=== PATIENT | male | born 1935 | race Caucasian/White ===

== ENCOUNTER 2023-08-25 09:23 | Outpatient (RCR) | payer OTHER, SELFPAY | END 2023-08-25 23:59 | disposition home or self-care (01) | LOC: ROT 09:23 | PROVIDERS: ATTENDING PHYSICIAN Internal Medicine Geriatric Medicine | DX: I69.311 Memory deficit following cerebral infarction (principal); I69.320 Aphasia following cerebral infarction; R41.3 Other amnesia; Z73.6 Limitation of activities due to disability | CPT/HCPCS: 96125; 97110; 97129; 97130; 97167; 97530; 97535 ==

== ENCOUNTER 2023-09-28 12:06 | Outpatient (RCR) | payer OTHER, SELFPAY | END 2023-09-28 23:59 | disposition home or self-care (01) | LOC: RPT 12:06 | PROVIDERS: ATTENDING PHYSICIAN Internal Medicine Geriatric Medicine | DX: I69.328 Other speech and language deficits following cerebral infarction; R41.3 Other amnesia; Z73.6 Limitation of activities due to disability; I69.318 Other symptoms and signs involving cognitive functions following cerebral infarction; I69.310 Attention and concentration deficit following cerebral infarction; I69.398 Other sequelae of cerebral infarction; R26.9 Unspecified abnormalities of gait and mobility; R26.89 Other abnormalities of gait and mobility; R53.1 Weakness | CPT/HCPCS: 97110; 97112; 97129; 97130; 97162; 97530; 97535 ==

== ENCOUNTER 2023-10-16 08:46 | Outpatient (RCR) | payer OTHER, SELFPAY | END 2023-10-16 23:59 | disposition home or self-care (01) | LOC: RPT 08:46 | PROVIDERS: ATTENDING PHYSICIAN Internal Medicine Geriatric Medicine | DX: I69.311 Memory deficit following cerebral infarction (principal); I69.310 Attention and concentration deficit following cerebral infarction (principal); I69.328 Other speech and language deficits following cerebral infarction; I69.320 Aphasia following cerebral infarction; R41.3 Other amnesia; I69.318 Other symptoms and signs involving cognitive functions following cerebral infarction; Z73.6 Limitation of activities due to disability; I69.398 Other sequelae of cerebral infarction; R26.89 Other abnormalities of gait and mobility; R53.1 Weakness | CPT/HCPCS: 97110; 97112; 97129; 97130; 97530; 97535 ==

== ENCOUNTER → 2024-01-12 12:36 | Outpatient (REF) | payer OTHER, SELFPAY | LOC: REG 12:36 | PROVIDERS: ATTENDING PHYSICIAN Nurse Practitioner Primary Care; OTHER PHYSICIAN Internal Medicine Rheumatology | DX: M25.561 Pain in right knee (principal); S89.91XA Unspecified injury of right lower leg, initial encounter | CPT/HCPCS: 73564 ==

== ENCOUNTER → 2024-02-17 09:08 | Outpatient (REF) | payer OTHER, SELFPAY | LOC: PAVMRI 09:08 | PROVIDERS: ATTENDING PHYSICIAN Nurse Practitioner Primary Care | DX: M25.561 Pain in right knee (principal); S89.91XA Unspecified injury of right lower leg, initial encounter; M25.461 Effusion, right knee | CPT/HCPCS: 73721 ==

== ENCOUNTER → 2024-03-09 10:17 | Outpatient (REF) | payer OTHER, SELFPAY ==
[2024-03-09 11:59] LABS: Urine Albumin Negative (Neg - Trace); Urine Bilirubin Negative (Negative); Urine Character Clear (Clear); Urine Color Yellow; Urine Glucose Negative (Negative); Urine Ketone Negative (Negative); Urine Leukocyte Negative (Negative); Urine Nitrite Negative (Negative); Urine Occult Blood Negative (Negative); Urine Urobilinogen Negative (Neg - 1+)
[2024-03-09 12:31] LABS: ALT (SGPT) 22 U/L (0-50); AST (SGOT) 26 U/L (17-59); Alkaline Phosphatase 116 U/L (38-126); Blood Urea Nitrogen 17 mg/dl (9-20); Calcium 8.7 mg/dl (8.4-10.2); Carbon Dioxide 31 mmol/L (22-30); Chloride 103 mmol/L (98-107); Glucose 91 mg/dl (70-99); HDL Cholesterol 78 mg/dl; LDL Cholesterol, Calculated 76 mg/dl; Potassium 4.3 mmol/L (3.5-5.1); Sodium 139 mmol/L (135-145); Total Bilirubin 1.1 mg/dl (0.2-1.3); Total Cholesterol 163 mg/dl (50-199); Total Protein 6.4 g/dl (6.3-8.2); Triglyceride 47 mg/dl (10-149); Very Low Density Lipoprotein 9 mg/dl (0-30); eGFR > 60.00
[2024-03-09 12:40] LABS: Vitamin D, 25-OH*** 15.1 ng/mL (30-80)
[2024-03-09 12:41] LABS: % Basophils 0.5 % (0-2); % Eosinophils 2.2 % (0-6); % Immature Granulocytes 0.2 % (0-0.5); % Lymphocytes 27.4 % (20.5-51.1); % Monocytes 7.4 % (1.7-9.3); % Neutrophils 62.3 % (42.2-75.2); Absolute Eosinophils 0.1 10^3/uL (0-0.7); Absolute Lymphocytes 1.7 10^3/uL (1.2-3.4); Absolute Monocytes 0.5 10^3/uL (0.1-0.6); Hematocrit 44.6 % (39.0-52.0); Hemoglobin 14.3 g/dL (13.0-18.0); Mean Corp Hgb Conc. 32.1 g/dL (33.0-37.0); Mean Corpuscular Hgb 31.4 pg (27.0-31.0); Nucleated Red Blood Cells % 0 % (-); Red Blood Cell Count 4.55 10^6/uL (4.70-6.10); Red Cell Dist. Width 13.6 % (11.5-14.5); White Blood Cell Count 6.3 10^3/uL (4.8-10.8)
[2024-03-09 12:54] LABS: PSA, Total - Screen 1.38 ng/ml (0.0-4.0)
== END ==
LOC: OLABPV 10:17
PROVIDERS: ATTENDING PHYSICIAN Internal Medicine Geriatric Medicine
DX: I10 Essential (primary) hypertension (principal); E78.00 Pure hypercholesterolemia, unspecified; I48.0 Paroxysmal atrial fibrillation; Z86.73 Personal history of transient ischemic attack (TIA), and cerebral infarction without residual deficits; N40.1 Benign prostatic hyperplasia with lower urinary tract symptoms; Z13.89 Encounter for screening for other disorder; Z12.5 Encounter for screening for malignant neoplasm of prostate
CPT/HCPCS: 36415; 80053; 80061; 81003; 82306; 85025; G0103

== ENCOUNTER → 2024-05-03 10:53 | Outpatient (REF) | payer OTHER, SELFPAY ==
[2024-05-03 11:53] LABS: % Basophils 0.6 % (0-2); % Eosinophils 1.4 % (0-6); % Immature Granulocytes 0.3 % (0-0.5); % Lymphocytes 26.4 % (20.5-51.1); % Neutrophils 64.3 % (42.2-75.2); Absolute Eosinophils 0.1 10^3/uL (0-0.7); Absolute Lymphocytes 1.9 10^3/uL (1.2-3.4); Absolute Monocytes 0.5 10^3/uL (0.1-0.6); Absolute Neutrophils 4.6 10^3/uL (1.4-6.5); Hematocrit 45.8 % (39.0-52.0); Hemoglobin 15.2 g/dL (13.0-18.0); Mean Corp Hgb Conc. 33.2 g/dL (33.0-37.0); Mean Corpuscular Hgb 31.5 pg (27.0-31.0); Mean Corpuscular Volume 94.8 fL (80.0-94.0); Mean Platelet Volume 12.1 fL (7.4-10.4); Nucleated Red Blood Cells % 0 % (-); Platelet Count 116 10^3/uL (130-400); Red Blood Cell Count 4.83 10^6/uL (4.70-6.10); Red Cell Dist. Width 13.4 % (11.5-14.5); White Blood Cell Count 7.2 10^3/uL (4.8-10.8)
[2024-05-03 12:01] LABS: Urine Albumin Negative (Neg - Trace); Urine Bilirubin Negative (Negative); Urine Character Clear (Clear); Urine Color Yellow; Urine Glucose Negative (Negative); Urine Ketone Negative (Negative); Urine Leukocyte Negative (Negative); Urine Nitrite Negative (Negative); Urine Occult Blood Negative (Negative); Urine Specific Gravity 1.015 (<1.030); Urine Urobilinogen Negative (Neg - 1+)
[2024-05-03 12:05] LABS: ALT (SGPT) 38 U/L (0-50); AST (SGOT) 34 U/L (17-59); Albumin 4.5 g/dl (3.5-5.0); Alkaline Phosphatase 105 U/L (38-126); Blood Urea Nitrogen 17 mg/dl (9-20); Calcium 8.9 mg/dl (8.4-10.2); Carbon Dioxide 30 mmol/L (22-30); Chloride 101 mmol/L (98-107); Glucose 91 mg/dl (70-99); HDL Cholesterol 91 mg/dl; LDL Cholesterol, Calculated 79 mg/dl; Potassium 4.3 mmol/L (3.5-5.1); Sodium 139 mmol/L (135-145); Total Bilirubin 1.2 mg/dl (0.2-1.3); Total Cholesterol 179 mg/dl (50-199); Triglyceride 48 mg/dl (10-149); Very Low Density Lipoprotein 9 mg/dl (0-30); eGFR > 60.00
[2024-05-03 12:19] LABS: Vitamin D, 25-OH*** 62.1 ng/mL (30-80)
== END ==
LOC: OLABPV 10:53
PROVIDERS: ATTENDING PHYSICIAN Internal Medicine Geriatric Medicine
DX: I10 Essential (primary) hypertension (principal); E78.00 Pure hypercholesterolemia, unspecified; I48.0 Paroxysmal atrial fibrillation; Z86.73 Personal history of transient ischemic attack (TIA), and cerebral infarction without residual deficits; N40.1 Benign prostatic hyperplasia with lower urinary tract symptoms; Z13.89 Encounter for screening for other disorder
CPT/HCPCS: 36415; 80053; 80061; 81003; 82306; 85025

== ENCOUNTER → 2025-01-17 09:44 | Outpatient (REF) | payer OTHER, SELFPAY ==
[2025-01-17 10:56] LABS: Urine Character Clear (Clear)
[2025-01-17 11:11] LABS: Hematocrit 43.9 % (39.0-52.0); Hemoglobin 14.1 g/dL (13.0-18.0); Mean Corp Hgb Conc. 32.1 g/dL (33.0-37.0); Mean Corpuscular Volume 96.3 fL (80.0-94.0); Nucleated Red Blood Cells % 0 % (-); Platelet Count 162 10^3/uL (130-400); Red Cell Dist. Width 13.3 % (11.5-14.5)
[2025-01-17 11:22] LABS: ALT (SGPT) 24 U/L (0-50); AST (SGOT) 26 U/L (17-59); Albumin 3.9 g/dl (3.5-5.0); Alkaline Phosphatase 84 U/L (38-126); Blood Urea Nitrogen 17 mg/dl (9-20); Calcium 8.6 mg/dl (8.4-10.2); Carbon Dioxide 32 mmol/L (22-30); Chloride 105 mmol/L (98-107); Glucose 89 mg/dl (70-99); HDL Cholesterol 69 mg/dl; LDL Cholesterol, Calculated 87 mg/dl; Potassium 4.2 mmol/L (3.5-5.1); Sodium 138 mmol/L (135-145); Total Protein 6.0 g/dl (6.3-8.2); Very Low Density Lipoprotein 11 mg/dl (0-30); eGFR > 60.00
[2025-01-17 11:30] LABS: CRP, Ultra Sensitive 0.30 mg/L (0.30-5.00)
[2025-01-17 11:38] LABS: Vitamin D, 25-OH*** 49.2 ng/mL (30-80)
[2025-01-17 11:52] LABS: PSA, Total - Screen 6.98 ng/ml (0.0-4.0)
== END ==
LOC: OLABPV 09:44
PROVIDERS: ATTENDING PHYSICIAN Internal Medicine Geriatric Medicine
DX: F48.8 Other specified nonpsychotic mental disorders (principal); Z13.29 Encounter for screening for other suspected endocrine disorder; I10 Essential (primary) hypertension; I48.0 Paroxysmal atrial fibrillation; E78.00 Pure hypercholesterolemia, unspecified; Z86.73 Personal history of transient ischemic attack (TIA), and cerebral infarction without residual deficits; N40.1 Benign prostatic hyperplasia with lower urinary tract symptoms; Z13.89 Encounter for screening for other disorder
CPT/HCPCS: 36415; 80053; 80061; 81003; 81015; 82306; 82330; 82652; 83970; 85025; 86141; G0103

== ENCOUNTER → 2025-02-15 01:07 | Outpatient (REF) | payer OTHER, SELFPAY | LOC: OLABPV 01:07 | PROVIDERS: ATTENDING PHYSICIAN Internal Medicine Geriatric Medicine | DX: R97.20 Elevated prostate specific antigen [PSA] (principal) | CPT/HCPCS: 36415; 84153; 84154 ==